=== PATIENT | female | born 1990 | race Caucasian/White ===

== ENCOUNTER 2020-07-05 05:05 | Emergency (ER) | payer OTHER ==
[~2020-07-05 05:05] MED LIST: CYCLOBENZAPRINE10 MG PO; DICLOFENAC SODI75 MG PO; MOTRIN600 MG PO
[2020-07-05 06:30] LABS: BASOPHIL 0.3 % (0-2); HCT 43.4 % (37.0-47.0); HGB 14.8 g/dl (12.5-16.0); LYMPHOCYTE 25.4 % (15-48); MCH 29.1 pg (25.0-31.0); MCHC 34.1 g/dL (32.0-36.0); MCV 85.4 fL (78.0-100.0); MONOCYTE 5.1 % (0-12); MPV 10.1 fL (6.0-9.5); NEUTROPHIL 68.1 % (41-80); NRBC 0; PLT 288 K/uL (150-400); RBC 5.08 M/uL (4.20-5.40); RDW 12.4 % (11.5-14.0); WBC 9.7 K/uL (4.0-10.5)
[2020-07-05 06:44] LABS: BILIRUBIN NEGATIVE (NEGATIVE); BLOOD NEGATIVE Ery/uL (NEGATIVE); CLARITY CLEAR (CLEAR); COLOR YELLOW (YELLOW); GLUCOSE (U) NORMAL (NORMAL); LEUKOCYTES NEGATIVE Leu/uL (NEGATIVE); NITRITE NEGATIVE (NEGATIVE); PROTEIN NEGATIVE (NEGATIVE); SPECIFIC GRAVITY >=1.030 (1.001-1.030); UROBILINOGEN 0.2 mg/dL (0.2-1.0)
[2020-07-05 06:48] LABS: ALBUMIN 3.5 g/dL (3.4-5.0); BILIRUBIN - TOTAL 0.5 mg/dL (0.2-1.0); BUN/CREAT RATIO (CALC) 27.3 RATIO; CREATININE 0.44 mg/dL (0.51-0.95); GLOBULIN (CALCULATION) 4.1 g/dL; POTASSIUM 3.7 mmol/L (3.5-5.1); TOTAL PROTEIN 7.6 g/dL (6.4-8.2)
[2020-07-05] MEDS ORDERED: URSODIOL250 MG PO (09:08)
[2020-07-05] MEDS ORDERED: LEVSIN0.125 MG PO (09:08)
[2020-07-05] MEDS ORDERED: ZOFRAN4 M1 PO (09:08)
[2020-07-20] MEDS ORDERED: QUETIAPINE FUMA25 MG PO (15:15)
== END 2020-07-05 09:20 | disposition home or self-care (01) ==
LOC: FER 05:05
PROVIDERS: Emergency Medicine
DX: K80.70 Calculus of gallbladder and bile duct without cholecystitis without obstruction (principal); F17.210 Nicotine dependence, cigarettes, uncomplicated; Z88.0 Allergy status to penicillin; Z88.8 Allergy status to other drugs, medicaments and biological substances
CPT/HCPCS: 36415; 76705; 80053; 81003; 83690; 85025

== ENCOUNTER 2020-07-27 07:50 | Day surgery (SDCO) | payer OTHER ==
[~2020-07-27 07:50] MED LIST changes: +LEVSIN0.125 MG PO; +QUETIAPINE FUMA25 MG PO; +URSODIOL250 MG PO; +ZOFRAN4 M1 PO
[2020-07-27 08:21] LABS: HCG (URINE) SCREEN NEGATIVE (NEGATIVE)
[2020-07-27] MEDS ORDERED: PERCOCET 5-3251 EACH PO (12:51)
--- NOTE | 2020-07-28 02:13 | NUR ---
PATIENT C/O NOT BEING ABLE TO EMPTY HER BLADDER, SHE HAD JUST AMBULATED TO THE BATHROOM AND VOIDED 50 ML INTO THE SPECI HAT. THIS NURSE BLADDER SCANNED THE PATIENT. THE BLADDER SCAN SHOWED 204 ML IN THE BLADDER. PATIENT IS ON IVF AND IS INDEPENDENT IN THE ROOM.
== END 2020-07-28 11:38 | disposition home or self-care (01) ==
LOC: FAS 07:50 → FMS 16:47
PROVIDERS: Anesthesiology; ADMIT Internal Medicine
DX: K80.10 Calculus of gallbladder with chronic cholecystitis without obstruction (principal); K42.9 Umbilical hernia without obstruction or gangrene; M41.9 Scoliosis, unspecified; E66.01 Morbid (severe) obesity due to excess calories; F17.210 Nicotine dependence, cigarettes, uncomplicated; G47.30 Sleep apnea, unspecified; F32.9 Major depressive disorder, single episode, unspecified; Z68.41 Body mass index [BMI] 40.0-44.9, adult; Z88.0 Allergy status to penicillin; Z88.8 Allergy status to other drugs, medicaments and biological substances
CPT/HCPCS: 84703; 93005; G0378; J1170; J1885; J1956; J2250; J2405; J2704; J2710; J3010; J7120

== ENCOUNTER 2020-08-11 02:55 | Emergency (ER) | payer OTHER ==
[~2020-08-11 02:55] MED LIST changes: +PERCOCET 5-3251 EACH PO
[2020-08-11 03:28] LABS: BASOPHIL 0.7 % (0-2); EOSINOPHIL 3.7 % (0-5); HCT 41.7 % (37.0-47.0); HGB 14.2 g/dl (12.5-16.0); MCH 29.5 pg (25.0-31.0); MCHC 34.1 g/dL (32.0-36.0); MCV 86.5 fL (78.0-100.0); MONOCYTE 7.1 % (0-12); MPV 9.9 fL (6.0-9.5); NEUTROPHIL 50.3 % (41-80); NRBC 0; PLT 306 K/uL (150-400); RBC 4.82 M/uL (4.20-5.40); RDW 12.5 % (11.5-14.0); WBC 9.8 K/uL (4.0-10.5)
[2020-08-11 03:48] LABS: ALBUMIN 3.4 g/dL (3.4-5.0); BILIRUBIN - TOTAL 0.3 mg/dL (0.2-1.0); BUN/CREAT RATIO (CALC) 26.1 RATIO; CREATININE 0.46 mg/dL (0.51-0.95); GLOBULIN (CALCULATION) 3.8 g/dL; POTASSIUM 3.4 mmol/L (3.5-5.1); TOTAL PROTEIN 7.2 g/dL (6.4-8.2)
[2020-08-11] MEDS ORDERED: PERCOCET 5-3251 EACH PO (05:19)
[2020-08-11] MEDS ORDERED: ONDANSETRON ODT4 MG SL (05:19)
== END 2020-08-11 05:30 | disposition home or self-care (01) ==
LOC: FER 02:55
PROVIDERS: Emergency Medicine Emergency Medical Services
DX: R10.11 Right upper quadrant pain (principal); R19.8 Other specified symptoms and signs involving the digestive system and abdomen; R19.7 Diarrhea, unspecified; M54.9 Dorsalgia, unspecified; F17.210 Nicotine dependence, cigarettes, uncomplicated; Z90.49 Acquired absence of other specified parts of digestive tract; Z88.0 Allergy status to penicillin; Z88.8 Allergy status to other drugs, medicaments and biological substances; Z87.19 Personal history of other diseases of the digestive system
CPT/HCPCS: 36415; 80053; 82150; 83605; 83690; 84703; 85025; J2270; J2405; J7030; Q9967

== ENCOUNTER 2020-10-15 22:34 | Emergency (ER) | payer OTHER ==
[~2020-10-15 22:34] MED LIST changes: +ONDANSETRON ODT4 MG SL
[2020-10-15 23:52] LABS: BASOPHIL 0.5 % (0-2); EOSINOPHIL 1.7 % (0-5); HCT 41.8 % (37.0-47.0); HGB 14.2 g/dl (12.5-16.0); LYMPHOCYTE 34.7 % (15-48); MCH 29.2 pg (25.0-31.0); MCV 85.8 fL (78.0-100.0); MONOCYTE 5.4 % (0-12); NEUTROPHIL 57.4 % (41-80); NRBC 0; PLT 328 K/uL (150-400); RBC 4.87 M/uL (4.20-5.40); RDW 12.4 % (11.5-14.0); WBC 10.6 K/uL (4.0-10.5)
[2020-10-15 23:59] LABS: BILIRUBIN NEGATIVE (NEGATIVE); BLOOD NEGATIVE Ery/uL (NEGATIVE); CLARITY CLEAR (CLEAR); COLOR YELLOW (YELLOW); GLUCOSE (U) NORMAL (NORMAL); LEUKOCYTES NEGATIVE Leu/uL (NEGATIVE); NITRITE NEGATIVE (NEGATIVE); PROTEIN NEGATIVE (NEGATIVE); UROBILINOGEN 0.2 mg/dL (0.2-1.0)
[2020-10-16 00:01] LABS: HCG (URINE) SCREEN NEGATIVE (NEGATIVE)
[2020-10-16 00:03] LABS: ALBUMIN 3.2 g/dL (3.4-5.0); BILIRUBIN - DIRECT 0.1 mg/dL (0.00-0.20); BILIRUBIN - TOTAL 0.5 mg/dL (0.2-1.0); BUN/CREAT RATIO (CALC) 20.5 RATIO; CREATININE 0.44 mg/dL (0.51-0.95); GLOBULIN (CALCULATION) 4.5 g/dL; POTASSIUM 4.3 mmol/L (3.5-5.1); TOTAL PROTEIN 7.7 g/dL (6.4-8.2)
== END 2020-10-16 04:05 | disposition home or self-care (01) ==
LOC: FER 22:34
PROVIDERS: Student in an Organized Health Care Education/Training Program
DX: R10.9 Unspecified abdominal pain (principal); M54.5 Low back pain; F17.210 Nicotine dependence, cigarettes, uncomplicated; Z88.0 Allergy status to penicillin; Z88.8 Allergy status to other drugs, medicaments and biological substances
CPT/HCPCS: 36415; 71045; 80048; 80076; 81003; 83690; 84703; 85025; J2270; J2405; J7030; Q9967

== ENCOUNTER 2021-10-04 14:04 | Emergency (ER) | payer OTHER ==
[2021-10-04 15:10] LABS: BASOPHIL 0.3 % (0-2); EOSINOPHIL 1.2 % (0-5); HCT 47.1 % (37.0-47.0); LYMPHOCYTE 24.1 % (15-48); MCH 28.4 pg (25.0-31.0); MCV 83.5 fL (78.0-100.0); MONOCYTE 5.3 % (0-12); MPV 9.7 fL (6.0-9.5); NEUTROPHIL 68.8 % (41-80); NRBC 0; PLT 296 K/uL (150-400); RBC 5.64 M/uL (4.20-5.40); RDW 12.6 % (11.5-14.0); WBC 9.3 K/uL (4.0-10.5)
[2021-10-04 15:26] LABS: ALBUMIN 3.7 g/dL (3.4-5.0); BILIRUBIN - TOTAL 0.4 mg/dL (0.2-1.0); BUN/CREAT RATIO (CALC) 20.4 RATIO; CREATININE 0.54 mg/dL (0.51-0.95); GLOBULIN (CALCULATION) 4.3 g/dL; POTASSIUM 3.7 mmol/L (3.5-5.1)
[2021-10-04 16:35] LABS: BILIRUBIN NEGATIVE (NEGATIVE); BLOOD NEGATIVE Ery/uL (NEGATIVE); CLARITY CLEAR (CLEAR); COLOR YELLOW (YELLOW); GLUCOSE (U) NORMAL (NORMAL); LEUKOCYTES NEGATIVE Leu/uL (NEGATIVE); NITRITE NEGATIVE (NEGATIVE); PROTEIN NEGATIVE (NEGATIVE); UROBILINOGEN 0.2 mg/dL (0.2-1.0)
[2021-10-04] MEDS ORDERED: BENTYL10 MG PO (17:46)
[2021-10-04] MEDS ORDERED: ONDANSETRON HCL4 MG PO (17:46)
== END 2021-10-04 18:01 | disposition home or self-care (01) ==
LOC: FER 14:04
PROVIDERS: Nurse Practitioner Family
DX: R10.84 Generalized abdominal pain (principal); R11.0 Nausea; F17.210 Nicotine dependence, cigarettes, uncomplicated; Z88.0 Allergy status to penicillin; Z88.8 Allergy status to other drugs, medicaments and biological substances
CPT/HCPCS: 36415; 80053; 81003; 82150; 83690; 85025; J1885; J2405; J7030; Q9967

== ENCOUNTER 2022-02-20 09:31 | Emergency (ER) | payer OTHER ==
[~2022-02-20 09:31] MED LIST changes: +BENTYL10 MG PO; +ONDANSETRON HCL4 MG PO
[2022-02-20 11:15] LABS: BASOPHIL 0.3 % (0-2); EOSINOPHIL 0.6 % (0-5); HCT 44.2 % (37.0-47.0); HGB 15.1 g/dl (12.5-16.0); MCH 29.2 pg (25.0-31.0); MCHC 34.2 g/dL (32.0-36.0); MCV 85.3 fL (78.0-100.0); MONOCYTE 5.6 % (0-12); MPV 10.2 fL (6.0-9.5); NEUTROPHIL 72.9 % (41-80); NRBC 0; PLT 290 K/uL (150-400); RBC 5.18 M/uL (4.20-5.40); RDW 12.4 % (11.5-14.0); WBC 8.9 K/uL (4.0-10.5)
[2022-02-20 11:47] LABS: CREATININE 0.5 mg/dL (0.51-0.95); POTASSIUM 3.5 mmol/L (3.5-5.1)
[2022-02-20 12:44] LABS: BILIRUBIN 1+ mg/dL (NEGATIVE); BLOOD NEGATIVE Ery/uL (NEGATIVE); CLARITY CLEAR (CLEAR); COLOR YELLOW (YELLOW); GLUCOSE (U) NORMAL (NORMAL); LEUKOCYTES NEGATIVE Leu/uL (NEGATIVE); NITRITE NEGATIVE (NEGATIVE); PROTEIN NEGATIVE (NEGATIVE)
[2022-02-20 12:49] LABS: AMPHETAMINES NEGATIVE (NEGATIVE); BARBITURATES NEGATIVE (NEGATIVE); ECSTASY (MDMA) NEGATIVE (NEGATIVE); MARIJUANA (THC) POSITIVE (NEGATIVE); METHADONE NEGATIVE (NEGATIVE); OPIATES NEGATIVE (NEGATIVE); OXYCODONE NEGATIVE (NEGATIVE)
== END 2022-02-20 13:37 | disposition home or self-care (01) ==
LOC: FER 09:31
PROVIDERS: Emergency Medicine
DX: F15.10 Other stimulant abuse, uncomplicated (principal); Z88.0 Allergy status to penicillin
CPT/HCPCS: 36415; 80048; 80305; 81003; 85025; J2405; J7030